=== PATIENT | male | born 1955 | race African-American/Black ===

== ENCOUNTER → 2016-06-01 | Outpatient (CLI) | payer MEDICARE ==
--- NOTE | ~2016-06-01 | MR32 ---
[facility] A Service of [facility] & [facility] RADIOLOGY TEXT RESULTS PATIENT: MAURO LUIS LOCATION: [facility] : 53 UNIT #: [id number] AGE: [address]: RYLAN LEBRON MD SEX: M ORDER DR: [id number] [facility] [address] [place], [place] [address] [id number] O MR#: [id number] Acc #: [id number] NAME: MAURO LUIS : 1955 SEX: M STUDY DATE/TIME: 06/01/2016 8:25 UNIT: [facility] ROOM: STUDY DESCRIPTION: MR Cervical Wo Contrast Attending Physician: Rylan Lebron M.D. Referring Physician: Rylan Lebron M.D. Ordering Physician: Rylan Lebron M.D. Primary Care Physician: yRlan Lebron M.D. MRI CENTER REPORT This report is preliminary unless electronic signature is present. EXAM Cervical spine MRI without HISTORY Left upper extremity radiculopathy, severe neck and left arm pain and numbness in second and third fingers for rai-vy-oqckf weeks. No known trauma. History of prostate cancer. COMMENTS MRI of the cervical spine performed without contrast using routine 1.5T imaging technique. Plain film comparisons from 01/12/2016. There is subtle reversal of upper cervical lordosis. There is disc desiccation in general and endplate spondylosis with loss of disc height most apparent C3-4, C4-5, C5-6. Marrow endplate degenerative changes present at multiple level mixed from 3-4 through 6-7 levels. There is severe loss of disc height at 3-4 and 5-6, ufxv-ii-irazlaot loss of disc height at 4-5 and 6-7. No Chiari-I malformation. This patient has a developmentally small cervical canal secondary to relatively short pedicles. This contributes to the canal stenosis which will be detailed below. On the coronal imaging there is mild levoconvex scoliosis also. At C2-3, mild concentric disc bulge with a tiny focal central protrusion but no canal stenosis or foraminal impingement. At C3-4, there is concentric desiccated disc osteophyte complex with uncovertebral osteophyte formation right greater than left. There is mild cord flattening and canal stenosis worse to the right of midline, severe right and xqowhaej-xs-ehgjvd left-side foraminal impingement. At C4-5, there is concentric disc osteophyte complex with superimposed broad posterior mild protrusion and uncovertebral osteophyte formation worse to the right than the left. The disc osteophyte is worse right [facility] RADIOLOGY TEXT RESULTS PATIENT: MAURO LUIS LOCATION: [facility] : 53 UNIT #: [id number] AGE: [address]: RYLAN LEBRON MD SEX: M ORDER DR: [id number] location and there is zkvw-qp-bqujukwf cord flattening and canal stenosis, severe right and yvcwcbjz-zn-cciedp left-side foraminal impingement. There is mild bilateral facet degenerative change. At C5-6, there is concentric desiccated disc osteophyte complex with uncovertebral osteophyte formation. Disc osteophyte is worse posteriorly. The combination of findings superimposed upon developmentally small canal result in at least moderate cord flattening and canal stenosis. There is severe foraminal impingement bilaterally. This is probably worse to the left than the in the right. At C6-7, there is a lryaktfq-cy-zomzk disc extrusion predominately left paramedian in location extending caudad from the disc remaining contiguous with it. It measures about 0.9 cm SI dimension, 0.6 cm AP dimension and 0.7 cm ML dimension. It results in mass effect on the left anterior cord. It is superimposed upon preexisting concentric disc bulge and endplate spondylosis with uncovertebral osteophyte formation left greater than right as well as preexisting emhk-nv-faojvmfp facet degenerative change. There is severe left and wfuc-dc-ffpebyux right-side foraminal narrowing. There is severe cord flattening and canal stenosis worse to the left of midline. This is the most likely candidate for symptomatic level given that the disc extrusion has a more recent appearance when compared to the others. Nonetheless, multiple candidates for left-sided symptoms are present. At C7-T1, there is bilateral facet degenerative change severe on the left, ilno-eo-dsezlcfl on the right. There is mild left-sided foraminal narrowing. Minor posterior disc bulge but no canal stenosis. In addition to the disc extrusion at the 6-7 level there is probably some inflammation or edema in the adjacent anterior epidural space better appreciated on the sagittal T1-weighted imaging and contributing to the canal stenosis. There is no clearly reproducible focus of cord signal abnormality at the level of severe cord compression but there is a fair amount of motion on the study. IMPRESSION There is severe cord flattening and canal stenosis asymmetric to the left side level of C6-7 due to a combination of findings including preexisting disc osteophyte complex and a superimposed left paramedian extrusion. Additionally these findings are superimposed upon a developmentally small bony cervical canal. No definite cord signal abnormality is seen allowing for some motion. Given that the extrusion appears more recent this is the most likely candidate for the etiology of the patient's recent symptoms but nonetheless there is multilevel cervical degenerative disease and please refer to the yxivi-tp-vprii description and correlate with radicular distribution involved. [facility] A Service of [facility] RADIOLOGY TEXT RESULTS PATIENT: MAURO LUIS LOCATION: [place] : 53 UNIT #: [id number] AGE: [address]: RYLAN LEBRON MD SEX: M ORDER DR: Dictated by... Jane Aguilar M.D. THIS IS AN ELECTRONICALLY VERIFIED REPORT Jane Aguilar M.D. at 06/01/2016 4:15 PM BEATRIZ/peña TD: 06/01/2016 13:56 JOB #: [id number] MRI CENTER REPORT Page 1 of 1 COPY
== END | disposition home or self-care (01) ==
LOC: CMRI 07:53
DX: M79.2 Neuralgia and neuritis, unspecified (principal); M48.02 Spinal stenosis, cervical region; M50.223 Other cervical disc displacement at C6-C7 level; M50.31 Other cervical disc degeneration, high cervical region; M50.321 Other cervical disc degeneration at C4-C5 level; M50.322 Other cervical disc degeneration at C5-C6 level; M50.323 Other cervical disc degeneration at C6-C7 level; M50.81 Other cervical disc disorders, high cervical region; M25.78 Osteophyte, vertebrae; M50.221 Other cervical disc displacement at C4-C5 level; M50.33 Other cervical disc degeneration, cervicothoracic region
CPT/HCPCS: 72141